=== PATIENT | female | born 1935 | race Caucasian/White ===

== ENCOUNTER 2017-11-11 12:19 | Inpatient (IN) | payer MEDICARE, BC ==
[~2017-11-11] VITALS: Ht 165.1 cm; Wt 84.0 kg
[~2017-11-11 12:19] MED LIST: ACET-2119 PO; APIX2.5T PO; ASPI-1071 PO; ATOR10TA70 PO; CHOL10002 PO; LEVO100T PO; SERT100T10 PO
[2017-11-11] MEDS ORDERED: normal saline 1000ml 1,000 ML IV ONE (13:20)
[2017-11-11 13:48] LABS: BASOPHILS % (AUTO) 0 % (0-1); EOSINOPHILS # (AUTO) 0.1 X10'3 (0-0.9); EOSINOPHILS % (AUTO) 0.8 % (0-6); HEMATOCRIT 38.3 % (35.0-45.0); HEMOGLOBIN 12.8 g/dl (12.0-16.0); LYMPHOCYTES # (AUTO) 0.9 X10'3 (1.1-4.8); LYMPHOCYTES % (AUTO) 7.5 % (21-51); MEAN CORPUSCULAR HEMOGLOBIN 29.1 PG (27.0-31.0); MEAN CORPUSCULAR HGB CONC 33.4 % (33.0-36.5); MEAN PLATELET VOLUME 9.8 FL (7.4-10.4); MONOCYTES # (AUTO) 0.7 X10'3 (0-0.9); MONOCYTES % (AUTO) 5.3 % (2-12); NEUTROPHILS # (AUTO) 10.7 X10'3 (1.8-7.7); NEUTROPHILS % (AUTO) 86.4 % (42-75); PLATELET COUNT 163 X10'3 (140-440); RED CELL DISTRIBUTION WIDTH 14.8 % (11.5-14.5); WHITE BLOOD COUNT 12.3 X10'3 (4.5-11.0)
[2017-11-11] MEDS ORDERED: traMADol 50MG tablet PO ONE (13:55)
[2017-11-11 13:57] LABS: INR 1.1 INR; PARTIAL THROMBOPLASTIN TIME 26 SECONDS (22-32); PROTHROMBIN TIME 11.3 SECONDS (9.0-12.0)
[2017-11-11 14:03] LABS: ALANINE AMINOTRANSFERASE 38 U/L (12-78); ALBUMIN 3.4 G/DL (3.4-5.0); ALBUMIN/GLOBULIN RATIO 0.9 (1.1-1.5); ALKALINE PHOSPHATASE 95 IU/L (46-116); ANION GAP 10 (8-16); ASPARTATE AMINO TRANSFERASE 43 U/L (10-37); BLOOD UREA NITROGEN 21 MG/DL (7-18); BUN/CREATININE RATIO 15.3 (6.6-38.0); CALCIUM 8.7 MG/DL (8.5-10.1); CHLORIDE 105 MMOL/L (99-107); CREATININE 1.37 MG/DL (0.40-0.90); GLUCOSE 117 MG/DL (70-104); POTASSIUM 4.1 MMOL/L (3.5-5.1); SODIUM 143 MMOL/L (135-145); TOTAL CARBON DIOXIDE 28.5 MMOL/L (24-32); TOTAL PROTEIN 7.4 G/DL (6.4-8.2); eGFR 37 ML/MIN
[2017-11-11 14:53] LABS: CLARITY,URINE CLEAR (Clear); COLOR,URINE YELLOW (Yellow); GLUCOSE, URINE NEGATIVE (Neg); KETONES,URINE NEGATIVE (Neg); LEUKOCYTE ESTERASE ,URINE NEGATIVE (Neg); NITRITES, URINE NEGATIVE (Neg); OCCULT BLOOD,URINE TRACE-INTACT (Neg); PH,URINE 5.5 (4.8-8.0); PROTEIN,URINE NEGATIVE (Neg)
[2017-11-11 14:55] LABS: UA COLLECTION TYPE STRAIGHT CATH
[2017-11-11 14:58] LABS: MUCUS STRANDS MODERATE /LPF (Neg); SQUAMOUS EPITHELIAL CELL,UR FEW /LPF (FEW)
[2017-11-11 14:59] LABS: BACTERIA,URINE 1+ /HPF (Neg); RBC,URINE 0-2 /HPF (0-2); WBC,URINE 0-4 /HPF (0-4)
[2017-11-11] MEDS ORDERED: CARV3.12 PO (15:28)
[2017-11-11] MEDS ORDERED: AMIO200T57 PO (15:28)
[2017-11-11] MEDS ORDERED: magnesium hydroxide 30ml (MOM) UD suspension PO PRN (17:35)
[2017-11-11] MEDS ORDERED: ondansetron/PF 4mg/2ml inj IV PRN (17:35)
[2017-11-11] MEDS ORDERED: acetaminophen 325mg tablet PO PRN (17:35)
[2017-11-11] MEDS ORDERED: mag hydrox/Alum hydrox/simeth 30ml oral suspension PO PRN (17:35)
[2017-11-11] MEDS: normal saline 1000ml 1,000 ML IV SCH (20:30)
[2017-11-11 21:00] VITALS: BP 128/61
[2017-11-11] MEDS: apixaban 2.5mg tablet PO SCH (22:42)
[2017-11-11] MEDS: heparin, porcine 5000 units/ml vial SQ SCH (22:42)
[2017-11-11] MEDS: carVEDilol 3.125mg tablet PO SCH (22:42)
[2017-11-12 02:00] VITALS: BP 130/57
[2017-11-12 02:39] LABS: ALBUMIN 2.6 G/DL (3.4-5.0); ANION GAP 8 (8-16); BLOOD UREA NITROGEN 17 MG/DL (7-18); BUN/CREATININE RATIO 16.5 (6.6-38.0); CALCIUM 8.1 MG/DL (8.5-10.1); CHLORIDE 108 MMOL/L (99-107); CREATININE 1.03 MG/DL (0.40-0.90); GLUCOSE 99 MG/DL (70-104); POTASSIUM 3.7 MMOL/L (3.5-5.1); SODIUM 142 MMOL/L (135-145); TOTAL CARBON DIOXIDE 25.7 MMOL/L (24-32); eGFR 51 ML/MIN
[2017-11-12 02:41] LABS: BASOPHILS % (AUTO) 0.3 % (0-1); EOSINOPHILS # (AUTO) 0.3 X10'3 (0-0.9); EOSINOPHILS % (AUTO) 4.1 % (0-6); HEMATOCRIT 32.7 % (35.0-45.0); HEMOGLOBIN 10.9 g/dl (12.0-16.0); LYMPHOCYTES # (AUTO) 1.3 X10'3 (1.1-4.8); LYMPHOCYTES % (AUTO) 16.2 % (21-51); MEAN CORPUSCULAR HEMOGLOBIN 29.4 PG (27.0-31.0); MEAN CORPUSCULAR HGB CONC 33.4 % (33.0-36.5); MEAN CORPUSCULAR VOLUME 88.1 FL (78-98); MEAN PLATELET VOLUME 10.5 FL (7.4-10.4); MONOCYTES # (AUTO) 0.5 X10'3 (0-0.9); MONOCYTES % (AUTO) 6.6 % (2-12); NEUTROPHILS # (AUTO) 5.9 X10'3 (1.8-7.7); NEUTROPHILS % (AUTO) 72.8 % (42-75); PLATELET COUNT 138 X10'3 (140-440); RED BLOOD COUNT 3.71 X10'6 (4.20-5.60)
[2017-11-12] MEDS: normal saline 1000ml 1,000 ML IV SCH (05:21)
[2017-11-12] MEDS ORDERED: non-formulary drug (Sertraline HCl 1.5 TAB) PO SCH (08:00)
[2017-11-12] MEDS ORDERED: amiodarone 100mg tablet PO SCH (08:00)
[2017-11-12] MEDS ORDERED: vitamin D (cholecalciferol) 1,000 unit tablet PO SCH (08:00)
[2017-11-12] MEDS ORDERED: atorvastatin 10mg tablet PO SCH (08:00)
[2017-11-12] MEDS ORDERED: sertraline 50mg tablet PO SCH (08:00)
[2017-11-12] MEDS ORDERED: CHOLECALCIFEROL 1000 UNIT PO SCH (08:00)
[2017-11-12] MEDS ORDERED: aspirin 81mg tablet.DR PO SCH (08:00)
[2017-11-12] MEDS ORDERED: levoTHYROXINE 100mcg tablet PO SCH (08:00)
[2017-11-12] MEDS: apixaban 2.5mg tablet PO SCH (08:22)
[2017-11-12] MEDS: carVEDilol 3.125mg tablet PO SCH (08:23)
[2017-11-12] MEDS: heparin, porcine 5000 units/ml vial SQ SCH (08:25)
== END 2017-11-12 14:00 | disposition home or self-care (01) | DRG 312 ==
LOC: ER 12:20 → ED HOLD 17:32 → EDBEDREQ 19:46 → PCU 3S 20:25
PROVIDERS: ADMIT Family Medicine; ATTEND Family Medicine
DX: R55 Syncope and collapse (principal); N17.0 Acute kidney failure with tubular necrosis; W19.XXXA Unspecified fall, initial encounter; E03.9 Hypothyroidism, unspecified; F03.90 Unspecified dementia, unspecified severity, without behavioral disturbance, psychotic disturbance, mood disturbance, and anxiety; F32.9 Major depressive disorder, single episode, unspecified; E86.0 Dehydration; I10 Essential (primary) hypertension; M25.551 Pain in right hip; I25.10 Atherosclerotic heart disease of native coronary artery without angina pectoris; Z88.0 Allergy status to penicillin; Z79.82 Long term (current) use of aspirin; Z79.01 Long term (current) use of anticoagulants; Z79.899 Other long term (current) drug therapy; Z86.73 Personal history of transient ischemic attack (TIA), and cerebral infarction without residual deficits; Y93.89 Activity, other specified; Y92.89 Other specified places as the place of occurrence of the external cause; Y99.8 Other external cause status
CPT/HCPCS: 36415; 70450; 71045; 72125; 72170; 80048; 80053; 81001; 83605; 84484; 85025; 85610; 85730; 87040; 87070; 93005; 93306; 97110; 97116; 97162; A4310; A4353; J1644; J7030; L0172

== ENCOUNTER 2017-11-23 18:07 | Inpatient (IN) | payer MEDICARE, BC ==
[~2017-11-23] VITALS: Ht 170.2 cm; Wt 79.0 kg
[~2017-11-23 18:07] MED LIST changes: +AMIO200T57 PO; +CARV3.12 PO
[2017-11-23 18:23] LABS: BASOPHILS % (AUTO) 0.5 % (0-1); EOSINOPHILS # (AUTO) 0.3 X10'3 (0-0.9); EOSINOPHILS % (AUTO) 4.7 % (0-6); HEMATOCRIT 33.7 % (35.0-45.0); HEMOGLOBIN 11.3 g/dl (12.0-16.0); LYMPHOCYTES # (AUTO) 1.4 X10'3 (1.1-4.8); LYMPHOCYTES % (AUTO) 22.4 % (21-51); MEAN CORPUSCULAR HEMOGLOBIN 29.1 PG (27.0-31.0); MEAN CORPUSCULAR HGB CONC 33.5 % (33.0-36.5); MEAN CORPUSCULAR VOLUME 86.9 FL (78-98); MONOCYTES # (AUTO) 0.6 X10'3 (0-0.9); MONOCYTES % (AUTO) 9.2 % (2-12); NEUTROPHILS # (AUTO) 4.1 X10'3 (1.8-7.7); NEUTROPHILS % (AUTO) 63.2 % (42-75); PLATELET COUNT 194 X10'3 (140-440); RED BLOOD COUNT 3.88 X10'6 (4.20-5.60); RED CELL DISTRIBUTION WIDTH 15.3 % (11.5-14.5); WHITE BLOOD COUNT 6.4 X10'3 (4.5-11.0)
[2017-11-23 18:34] LABS: INR 1.1 INR; PARTIAL THROMBOPLASTIN TIME 28 SECONDS (22-32); PROTHROMBIN TIME 11.7 SECONDS (9.0-12.0)
[2017-11-23] MEDS ORDERED: SERT50TA PO (18:40)
[2017-11-23] MEDS ORDERED: CHOL10002 PO (18:40)
[2017-11-23] MEDS ORDERED: OMEP40CA37 PO (18:40)
[2017-11-23] MEDS ORDERED: LACT1CAP67 PO (18:40)
[2017-11-23] MEDS ORDERED: TRAM1TAB36 PO (18:40)
[2017-11-23 18:45] LABS: ALANINE AMINOTRANSFERASE 27 U/L (12-78); ALBUMIN 2.4 G/DL (3.4-5.0); ALBUMIN/GLOBULIN RATIO 0.7 (1.1-1.5); ALKALINE PHOSPHATASE 224 IU/L (46-116); ANION GAP 10 (8-16); ASPARTATE AMINO TRANSFERASE 33 U/L (10-37); BILIRUBIN,TOTAL 0.7 MG/DL (0.1-1.0); BLOOD UREA NITROGEN 12 MG/DL (7-18); BUN/CREATININE RATIO 12.1 (6.6-38.0); CALCIUM 7.1 MG/DL (8.5-10.1); CHLORIDE 112 MMOL/L (99-107); CREATININE 0.99 MG/DL (0.40-0.90); GLUCOSE 77 MG/DL (70-104); POTASSIUM 3.3 MMOL/L (3.5-5.1); SODIUM 145 MMOL/L (135-145); TOTAL CARBON DIOXIDE 23.1 MMOL/L (24-32); TOTAL PROTEIN 5.7 G/DL (6.4-8.2); TROPONIN I < 0.04 NG/ML (0.0-0.05); eGFR 54 ML/MIN
[2017-11-23 19:20] LABS: CLARITY,URINE CLEAR (Clear); COLOR,URINE YELLOW (Yellow); GLUCOSE, URINE NEGATIVE (Neg); KETONES,URINE NEGATIVE (Neg); LEUKOCYTE ESTERASE ,URINE NEGATIVE (Neg); NITRITES, URINE NEGATIVE (Neg); OCCULT BLOOD,URINE NEGATIVE (Neg); PROTEIN,URINE NEGATIVE (Neg)
[2017-11-23 19:22] LABS: UA COLLECTION TYPE STRAIGHT CATH
[2017-11-23] MEDS ORDERED: mag hydrox/Alum hydrox/simeth 30ml oral suspension PO PRN (20:20)
[2017-11-23] MEDS ORDERED: potassium Cl 20 mEq SR tablet PO PRN (20:20)
[2017-11-23] MEDS ORDERED: magnesium hydroxide 30ml (MOM) UD suspension PO PRN (20:20)
[2017-11-23] MEDS ORDERED: ondansetron/PF 4mg/2ml inj IV PRN (20:20)
[2017-11-23] MEDS ORDERED: HYDROcodone/acetaminophen 10/325mg tab PO PRN (20:20)
[2017-11-23] MEDS ORDERED: acetaminophen 325mg tablet PO PRN ×3 (20:20→20:35)
[2017-11-23] MEDS ORDERED: potassium Cl 40MEQ/NS 500ml 500 ML IV PRN ×2 (20:20)
[2017-11-23] MEDS ORDERED: HYDROcodone/acetaminophen 5mg/325mg tablet PO PRN (20:20)
[2017-11-23] MEDS ORDERED: temazepam 15mg capsule PO PRN (21:00)
[2017-11-23 21:04] LABS: CHOL/HDL RATIO 2.6 (0.00-4.99); CHOLESTEROL 98 MG/DL (0-200); HDL CHOLESTEROL 37 MG/DL (35-60); LDL CHOLESTEROL 50 MG/DL (50-100); TRIGLYCERIDES 51 MG/DL (20-135)
[2017-11-23] MEDS: normal saline 1000ml 1,000 ML IV SCH (21:28)
[2017-11-23] MEDS: potassium Cl 20 mEq SR tablet PO PRN (21:29)
[2017-11-23] MEDS: atorvastatin 10mg tablet PO SCH (21:29)
[2017-11-23] MEDS: aspirin 81mg tablet.DR PO SCH (21:29)
[2017-11-23] MEDS: sertraline 50mg tablet PO SCH (21:30)
[2017-11-23 21:40] VITALS: BP 189/68
[2017-11-23] MEDS ORDERED: TRAMADOL HCL PO PRN (21:45)
[2017-11-23] MEDS ORDERED: ACETAMINOPHEN PO PRN (21:45)
[2017-11-24 02:00] VITALS: BP 158/60
[2017-11-24] MEDS: potassium Cl 20 mEq SR tablet PO PRN (02:57)
[2017-11-24 06:00] VITALS: BP 159/60
[2017-11-24 06:45] LABS: ALBUMIN 2.8 G/DL (3.4-5.0); ANION GAP 7 (8-16); BLOOD UREA NITROGEN 15 MG/DL (7-18); BUN/CREATININE RATIO 12.4 (6.6-38.0); CALCIUM 8.5 MG/DL (8.5-10.1); CHLORIDE 107 MMOL/L (99-107); CREATININE 1.21 MG/DL (0.40-0.90); GLUCOSE 100 MG/DL (70-104); POTASSIUM 4.3 MMOL/L (3.5-5.1); SODIUM 140 MMOL/L (135-145); TOTAL CARBON DIOXIDE 25.8 MMOL/L (24-32); eGFR 43 ML/MIN
[2017-11-24 06:50] LABS: BASOPHILS % (AUTO) 0.3 % (0-1); EOSINOPHILS # (AUTO) 0.4 X10'3 (0-0.9); EOSINOPHILS % (AUTO) 5.2 % (0-6); HEMATOCRIT 33.6 % (35.0-45.0); HEMOGLOBIN 11.3 g/dl (12.0-16.0); LYMPHOCYTES # (AUTO) 1.3 X10'3 (1.1-4.8); LYMPHOCYTES % (AUTO) 17.4 % (21-51); MEAN CORPUSCULAR HEMOGLOBIN 29.4 PG (27.0-31.0); MEAN CORPUSCULAR HGB CONC 33.7 % (33.0-36.5); MEAN CORPUSCULAR VOLUME 87.3 FL (78-98); MEAN PLATELET VOLUME 9.4 FL (7.4-10.4); MONOCYTES # (AUTO) 0.6 X10'3 (0-0.9); MONOCYTES % (AUTO) 8.8 % (2-12); NEUTROPHILS % (AUTO) 68.3 % (42-75); PLATELET COUNT 193 X10'3 (140-440); RED BLOOD COUNT 3.85 X10'6 (4.20-5.60); RED CELL DISTRIBUTION WIDTH 15.3 % (11.5-14.5); WHITE BLOOD COUNT 7.3 X10'3 (4.5-11.0)
[2017-11-24] MEDS: amiodarone 100mg tablet PO SCH (07:08)
[2017-11-24] MEDS: vitamin D (cholecalciferol) 1,000 unit tablet PO SCH (07:09)
[2017-11-24] MEDS: apixaban 2.5mg tablet PO SCH ×2 (07:09→20:02)
[2017-11-24] MEDS: lactobacillus rhamnosus 10,000 MMU CELLS/CAPSULE PO SCH (07:09)
[2017-11-24] MEDS: levoTHYROXINE 100mcg tablet PO SCH (07:09)
[2017-11-24] MEDS: carVEDilol 3.125mg tablet PO SCH ×2 (07:09→20:02)
[2017-11-24] MEDS ORDERED: pantoprazole 40mg Tablet.DR PO PRN (07:30)
[2017-11-24] MEDS: K and/or MAG REPLACEMENT MC SCH (08:00)
[2017-11-24 10:00] VITALS: BP 137/62
[2017-11-24] MEDS: normal saline 1000ml 1,000 ML IV SCH (17:22)
[2017-11-24 18:00] VITALS: BP_SYST 106; BP_SYST 180; BP_DIAS 57; BP_DIAS 71
[2017-11-24 19:49] VITALS: BP 142/63
[2017-11-24] MEDS: aspirin 81mg tablet.DR PO SCH (20:02)
[2017-11-24] MEDS: atorvastatin 10mg tablet PO SCH (20:02)
[2017-11-24] MEDS: sertraline 50mg tablet PO SCH (20:02)
[2017-11-24 22:00] VITALS: BP 147/59
[2017-11-25 02:00] VITALS: BP 148/56
[2017-11-25 05:00] VITALS: BP 161/71
[2017-11-25 06:00] VITALS: BP 161/71
[2017-11-25 06:09] LABS: BASOPHILS % (AUTO) 0.4 % (0-1); EOSINOPHILS # (AUTO) 0.4 X10'3 (0-0.9); EOSINOPHILS % (AUTO) 5.9 % (0-6); HEMATOCRIT 34.7 % (35.0-45.0); HEMOGLOBIN 11.6 g/dl (12.0-16.0); LYMPHOCYTES # (AUTO) 1.3 X10'3 (1.1-4.8); LYMPHOCYTES % (AUTO) 17.3 % (21-51); MEAN CORPUSCULAR HEMOGLOBIN 29.1 PG (27.0-31.0); MEAN CORPUSCULAR HGB CONC 33.3 % (33.0-36.5); MEAN CORPUSCULAR VOLUME 87.4 FL (78-98); MEAN PLATELET VOLUME 9.1 FL (7.4-10.4); MONOCYTES # (AUTO) 0.6 X10'3 (0-0.9); MONOCYTES % (AUTO) 8.5 % (2-12); NEUTROPHILS % (AUTO) 67.9 % (42-75); PLATELET COUNT 192 X10'3 (140-440); RED BLOOD COUNT 3.97 X10'6 (4.20-5.60); RED CELL DISTRIBUTION WIDTH 15.4 % (11.5-14.5); WHITE BLOOD COUNT 7.4 X10'3 (4.5-11.0)
[2017-11-25 06:20] LABS: ALBUMIN 2.7 G/DL (3.4-5.0); ANION GAP 5 (8-16); BLOOD UREA NITROGEN 12 MG/DL (7-18); BUN/CREATININE RATIO 12.1 (6.6-38.0); CHLORIDE 106 MMOL/L (99-107); CREATININE 0.99 MG/DL (0.40-0.90); GLUCOSE 97 MG/DL (70-104); POTASSIUM 4.1 MMOL/L (3.5-5.1); SODIUM 138 MMOL/L (135-145); TOTAL CARBON DIOXIDE 26.7 MMOL/L (24-32); eGFR 54 ML/MIN
[2017-11-25] MEDS: amiodarone 100mg tablet PO SCH (08:00)
[2017-11-25] MEDS: vitamin D (cholecalciferol) 1,000 unit tablet PO SCH (08:00)
[2017-11-25] MEDS: carVEDilol 3.125mg tablet PO SCH ×2 (08:00→20:02)
[2017-11-25] MEDS: levoTHYROXINE 100mcg tablet PO SCH (08:00)
[2017-11-25] MEDS: apixaban 2.5mg tablet PO SCH ×2 (08:00→20:02)
[2017-11-25] MEDS: lactobacillus rhamnosus 10,000 MMU CELLS/CAPSULE PO SCH (08:00)
[2017-11-25] MEDS: K and/or MAG REPLACEMENT MC SCH (08:00)
[2017-11-25 10:00] VITALS: BP 136/63
[2017-11-25] MEDS: normal saline 1000ml 1,000 ML IV SCH (16:11)
[2017-11-25 18:00] VITALS: BP 163/62
[2017-11-25] MEDS: atorvastatin 10mg tablet PO SCH (20:02)
[2017-11-25] MEDS: aspirin 81mg tablet.DR PO SCH (20:02)
[2017-11-25] MEDS: sertraline 50mg tablet PO SCH (20:03)
[2017-11-25 22:00] VITALS: BP 132/51
[2017-11-26 05:55] LABS: BASOPHILS % (AUTO) 0.4 % (0-1); EOSINOPHILS # (AUTO) 0.6 X10'3 (0-0.9); EOSINOPHILS % (AUTO) 8.1 % (0-6); HEMOGLOBIN 11.5 g/dl (12.0-16.0); LYMPHOCYTES # (AUTO) 1.6 X10'3 (1.1-4.8); LYMPHOCYTES % (AUTO) 23.1 % (21-51); MEAN CORPUSCULAR HEMOGLOBIN 29.6 PG (27.0-31.0); MEAN CORPUSCULAR HGB CONC 33.8 % (33.0-36.5); MEAN CORPUSCULAR VOLUME 87.5 FL (78-98); MEAN PLATELET VOLUME 9.5 FL (7.4-10.4); MONOCYTES # (AUTO) 0.6 X10'3 (0-0.9); MONOCYTES % (AUTO) 8.3 % (2-12); NEUTROPHILS # (AUTO) 4.2 X10'3 (1.8-7.7); NEUTROPHILS % (AUTO) 60.1 % (42-75); PLATELET COUNT 182 X10'3 (140-440); RED BLOOD COUNT 3.89 X10'6 (4.20-5.60); RED CELL DISTRIBUTION WIDTH 15.3 % (11.5-14.5); WHITE BLOOD COUNT 6.9 X10'3 (4.5-11.0)
[2017-11-26 06:00] VITALS: BP 140/56
[2017-11-26 06:13] LABS: ALBUMIN 2.6 G/DL (3.4-5.0); ANION GAP 6 (8-16); BLOOD UREA NITROGEN 12 MG/DL (7-18); CALCIUM 8.2 MG/DL (8.5-10.1); CHLORIDE 109 MMOL/L (99-107); GLUCOSE 97 MG/DL (70-104); POTASSIUM 3.9 MMOL/L (3.5-5.1); SODIUM 142 MMOL/L (135-145); TOTAL CARBON DIOXIDE 26.6 MMOL/L (24-32); eGFR 43 ML/MIN
[2017-11-26] MEDS: K and/or MAG REPLACEMENT MC SCH (08:00)
[2017-11-26] MEDS: vitamin D (cholecalciferol) 1,000 unit tablet PO SCH (09:26)
[2017-11-26] MEDS: lactobacillus rhamnosus 10,000 MMU CELLS/CAPSULE PO SCH (09:26)
[2017-11-26] MEDS: apixaban 2.5mg tablet PO SCH (09:26)
[2017-11-26] MEDS: amiodarone 100mg tablet PO SCH (09:26)
[2017-11-26] MEDS: levoTHYROXINE 100mcg tablet PO SCH (09:26)
[2017-11-26] MEDS: carVEDilol 3.125mg tablet PO SCH (09:26)
[2017-11-26 10:00] VITALS: BP 153/61
== END 2017-11-26 15:10 | DRG 948 ==
LOC: ER 18:07 → ED HOLD 20:18 → ORTHO 4S 21:10
PROVIDERS: ADMIT Hospitalist; ATTEND Internal Medicine
DX: R53.1 Weakness (principal); E44.1 Mild protein-calorie malnutrition; I69.354 Hemiplegia and hemiparesis following cerebral infarction affecting left non-dominant side; E86.0 Dehydration; D64.9 Anemia, unspecified; E03.9 Hypothyroidism, unspecified; E87.6 Hypokalemia; F03.90 Unspecified dementia, unspecified severity, without behavioral disturbance, psychotic disturbance, mood disturbance, and anxiety; I10 Essential (primary) hypertension; F32.9 Major depressive disorder, single episode, unspecified; K44.9 Diaphragmatic hernia without obstruction or gangrene; E78.5 Hyperlipidemia, unspecified; I48.2 Chronic atrial fibrillation; I25.10 Atherosclerotic heart disease of native coronary artery without angina pectoris; I69.328 Other speech and language deficits following cerebral infarction; Z74.01 Bed confinement status; Z90.49 Acquired absence of other specified parts of digestive tract; Z79.01 Long term (current) use of anticoagulants; Z79.82 Long term (current) use of aspirin; Z79.899 Other long term (current) drug therapy; Z88.0 Allergy status to penicillin; Z68.27 Body mass index [BMI] 27.0-27.9, adult
CPT/HCPCS: 36415; 70450; 70544; 70551; 71045; 80048; 80053; 80061; 81003; 84443; 84484; 85025; 85610; 85730; 87070; 92507; 92616; 93005; 93880; 97110; 97116; 97161; 97530; 99285; A4353; A6212; J7030

== ENCOUNTER 2018-03-25 07:21 | Emergency (ER) | payer MEDICARE, BC ==
[~2018-03-25] VITALS: Ht 165.1 cm; Wt 80.0 kg
[~2018-03-25 07:21] MED LIST changes: +AMIO200T40 PO; -AMIO200T57 PO; +LACT1CAP67 PO; +OMEP40CA37 PO; -SERT100T10 PO; +SERT50TA PO; +TRAM1TAB7 PO
[2018-03-25 07:57] LABS: BASOPHILS % (AUTO) 0.3 % (0-1); EOSINOPHILS # (AUTO) 0.4 X10'3 (0-0.9); EOSINOPHILS % (AUTO) 5.7 % (0-6); HEMOGLOBIN 12.3 g/dl (12.0-16.0); LYMPHOCYTES # (AUTO) 1.6 X10'3 (1.1-4.8); LYMPHOCYTES % (AUTO) 22.7 % (21-51); MEAN CORPUSCULAR HEMOGLOBIN 28.2 PG (27.0-31.0); MEAN CORPUSCULAR HGB CONC 32.4 % (33.0-36.5); MEAN CORPUSCULAR VOLUME 87.1 FL (78-98); MEAN PLATELET VOLUME 9.9 FL (7.4-10.4); MONOCYTES # (AUTO) 0.6 X10'3 (0-0.9); MONOCYTES % (AUTO) 8.1 % (2-12); NEUTROPHILS # (AUTO) 4.5 X10'3 (1.8-7.7); NEUTROPHILS % (AUTO) 63.2 % (42-75); PLATELET COUNT 184 X10'3 (140-440); RED BLOOD COUNT 4.36 X10'6 (4.20-5.60); RED CELL DISTRIBUTION WIDTH 15.9 % (11.5-14.5); WHITE BLOOD COUNT 7.2 X10'3 (4.5-11.0)
[2018-03-25 08:08] LABS: ALANINE AMINOTRANSFERASE 39 U/L (12-78); ALBUMIN 2.9 G/DL (3.4-5.0); ALBUMIN/GLOBULIN RATIO 0.7 (1.1-1.5); ALKALINE PHOSPHATASE 81 IU/L (46-116); ANION GAP 7 (8-16); ASPARTATE AMINO TRANSFERASE 46 U/L (10-37); BILIRUBIN,TOTAL 0.7 MG/DL (0.1-1.0); BLOOD UREA NITROGEN 18 MG/DL (7-18); BUN/CREATININE RATIO 15.3 (6.6-38.0); CALCIUM 8.6 MG/DL (8.5-10.1); CHLORIDE 106 MMOL/L (99-107); CREATININE 1.18 MG/DL (0.40-0.90); GLUCOSE 98 MG/DL (70-104); POTASSIUM 4.1 MMOL/L (3.5-5.1); SODIUM 141 MMOL/L (135-145); TOTAL CARBON DIOXIDE 28.2 MMOL/L (24-32); TOTAL PROTEIN 6.8 G/DL (6.4-8.2); eGFR 44 ML/MIN
[2018-03-25 08:39] LABS: INR 1.1 INR; PARTIAL THROMBOPLASTIN TIME 28 SECONDS (22-32)
[2018-03-25 09:23] VITALS: BP 124/69
== END 2018-03-25 09:48 ==
LOC: ER 07:22
DX: J06.9 Acute upper respiratory infection, unspecified (principal); R07.89 Other chest pain; I10 Essential (primary) hypertension; F03.90 Unspecified dementia, unspecified severity, without behavioral disturbance, psychotic disturbance, mood disturbance, and anxiety; Z86.73 Personal history of transient ischemic attack (TIA), and cerebral infarction without residual deficits; Z88.0 Allergy status to penicillin; Z79.82 Long term (current) use of aspirin; Z79.899 Other long term (current) drug therapy
CPT/HCPCS: 36415; 71045; 80053; 84484; 85025; 85610; 85730; 93005; 99285